=== PATIENT | female | born 1995 | race Two or more races ===

== ENCOUNTER 2017-09-25 12:10 | Emergency (ER) | payer MEDICAID ==
[~2017-09-25] VITALS: Ht 167.6 cm; Wt 70.3 kg
[2017-09-25 15:04] VITALS: BP 139/68
[2017-09-25] MEDS ORDERED: BACITRACIN TOP OINT 1 UD PKG TOP ONE (15:15)
[2017-09-25] MEDS ORDERED: BACITRACIN-POLYMYXIN B TOPICAL OINT UD TOP ONE (15:19)
[2017-09-25] MEDS ORDERED: NEOMYCIN-BACITRACIN-POLYM UNITDOSE PKG TOP OINT TOP ONE (15:30)
== END 2017-09-25 15:28 | disposition home or self-care (01) ==
LOC: ER 12:23
DX: S92.315A Nondisplaced fracture of first metatarsal bone, left foot, initial encounter for closed fracture (principal); M25.532 Pain in left wrist; W20.8XXA Other cause of strike by thrown, projected or falling object, initial encounter; Y93.89 Activity, other specified; Y92.89 Other specified places as the place of occurrence of the external cause; Y99.8 Other external cause status
CPT/HCPCS: 73110; 73630; 99284; L3260